=== PATIENT | male | born 1960 | race Caucasian/White ===

== ENCOUNTER 2019-07-11 10:10 | Emergency (ER) | payer MEDICAID ==
[~2019-07-11] VITALS: Ht 152.4 cm; Wt 84.2 kg
[~2019-07-11 10:10] MED LIST: FAMO-96 PO; ONDA4TAB8 PO; PROSTATE PO; [UNRECOGNIZED DRUG - REMARK]
[2019-07-11 10:14] VITALS: Ht 152.4 cm; Wt 84.2 kg
[2019-07-11] MEDS ORDERED: SOD CHLORIDE 0.9% 1,000 ML IV ONE (11:00)
[2019-07-11] MEDS ORDERED: ONDANSETRON 4 MG INJ IV STA (13:14)
[2019-07-11] MEDS ORDERED: FAMOTIDINE 20 MG INJ IV ONE (13:30)
[2019-07-11] MEDS ORDERED: LIDOCAINE/MYLANTA 40 ML BTL PO ONE (13:30)
[2019-07-11 14:12] VITALS: BP 18/92; PULSE 70; RESP 18
== END 2019-07-11 14:22 | disposition home or self-care (01) ==
LOC: E/R 10:10
DX: R10.13 Epigastric pain (principal)
CPT/HCPCS: 36415; 74176; 76705; 80053; 81001; 83690; 85025; 96374; 96375; J2405; J7030; Z7502; Z7610